=== PATIENT | female | born 1985 | race African-American/Black ===

== ENCOUNTER 2019-02-06 12:06 | Emergency (ER) | payer OTHER ==
[~2019-02-06] VITALS: Ht 157.5 cm; Wt 53.0 kg
[2019-02-06 12:09] VITALS: BP 128/81
== END 2019-02-06 15:22 | disposition home or self-care (01) ==
LOC: ER 12:34
DX: S90.822A Blister (nonthermal), left foot, initial encounter (principal); N76.0 Acute vaginitis; K21.9 Gastro-esophageal reflux disease without esophagitis; F20.9 Schizophrenia, unspecified; F12.10 Cannabis abuse, uncomplicated; F17.200 Nicotine dependence, unspecified, uncomplicated; Z88.8 Allergy status to other drugs, medicaments and biological substances; X58.XXXA Exposure to other specified factors, initial encounter; Y93.89 Activity, other specified; Y92.89 Other specified places as the place of occurrence of the external cause; Y99.8 Other external cause status
CPT/HCPCS: 99283

== ENCOUNTER 2019-03-11 17:34 | Emergency (ER) | payer OTHER ==
[~2019-03-11] VITALS: Ht 154.9 cm; Wt 53.0 kg
[2019-03-11 17:57] VITALS: BP 121/77
== END 2019-03-11 21:53 | disposition left against medical advice (07) ==
LOC: ER 17:34
DX: Z53.21 Procedure and treatment not carried out due to patient leaving prior to being seen by health care provider (principal)

== ENCOUNTER 2019-03-13 11:00 | Emergency (ER) | payer OTHER ==
[~2019-03-13] VITALS: Ht 160 cm; Wt 53.0 kg
[2019-03-13 11:10] VITALS: BP 112/64
== END 2019-03-13 12:15 | disposition home or self-care (01) ==
LOC: ER 11:00
DX: Z48.01 Encounter for change or removal of surgical wound dressing (principal); F12.10 Cannabis abuse, uncomplicated; F20.9 Schizophrenia, unspecified; F17.290 Nicotine dependence, other tobacco product, uncomplicated; Z88.8 Allergy status to other drugs, medicaments and biological substances
CPT/HCPCS: 99281

== ENCOUNTER 2020-07-13 07:15 | Emergency (ER) | payer MEDICARE, OTHER ==
[~2020-07-13] VITALS: Ht 157.5 cm; Wt 66.0 kg
[2020-07-13] MEDS ORDERED: DIPHENHYDRAMINE 25MG CAPSULE PO ONE (07:30)
[2020-07-13] MEDS ORDERED: ACETAMINOPHEN 325MG TABLET PO ONE (07:30)
[2020-07-13] MEDS ORDERED: DIPH25CA83 MT (08:13)
[2020-07-13] MEDS ORDERED: IBUP-2029 MT (08:13)
[2020-07-13 08:28] VITALS: BP 101/71
== END 2020-07-13 08:30 | disposition home or self-care (01) ==
LOC: ER 07:49
DX: R21 Rash and other nonspecific skin eruption (principal); L25.9 Unspecified contact dermatitis, unspecified cause; M25.562 Pain in left knee; M25.561 Pain in right knee
CPT/HCPCS: 73560; 99283; Q0163